=== PATIENT | male | born 1995 | race Asian ===

== ENCOUNTER 2020-12-03 14:24 | Outpatient (REF) | payer OTHER, SELFPAY | END 2020-12-03 14:25 | disposition home or self-care (01) | LOC: HO.LAB 14:24 | PROVIDERS: Visit Provider Internal Medicine | DX: Z20.822 Contact with and (suspected) exposure to COVID-19 (principal) | CPT/HCPCS: 36415; C9803; U0003; U0005 ==

== ENCOUNTER 2021-06-15 15:30 | Outpatient (REF) | payer OTHER, SELFPAY | END 2021-06-15 15:31 | disposition home or self-care (01) | LOC: HO.LAB 15:30 | PROVIDERS: Visit Provider Internal Medicine | DX: Z20.822 Contact with and (suspected) exposure to COVID-19 (principal) | CPT/HCPCS: C9803; U0003; U0005 ==

== ENCOUNTER 2025-03-27 13:47 | Outpatient (AMB) | payer OTHER, SELFPAY ==
--- OUTSIDE RECORDS SUMMARY | 2025-03-27 13:49 | XMS_ITS | Continuity of Care Document ---
Author Name [facility] Organization [facility] Care Team Providers Care Music Producer Name Role Phone [facility] Unavailable Unavailable Problems Combined list of problems from Department of Defense and Veterans Affairs facilities. It does not include entries that were removed or entered in error. Problem Status Onset Date Problem Type Date of Resolution Comments Source DERMATOPHYTOSIS TINEA PEDIS Active Condition DoD [employer] Fitting Monofocals (Not For Aphakia) Active Condition DoD Vaccines Prophylactic Need Against Combinations Of Diseases Inactive Condition DoD Vaccines Prophylactic Need Against Influenza Inactive Condition DoD visit for: screening exam hematological disorders Inactive Condition DoD Vaccines Prophylactic Need Against Viral Diseases Inactive Condition DoD Vaccines Prophylactic Need Against Bacterial Diseases Meningococcal Inactive Condition DoD Need For Vaccination Hepatitis A And Hepatitis B Inactive Condition DoD Vaccines Prophylactic Need Against DTP Inactive Condition DoD Need For Vaccination Poliomyelitis Inactivated Inactive Condition DoD Vaccines Prophylactic Need Against Bacterial Diseases Inactive Condition DoD visit for: occupational health / fitness exam Active Condition [facility] Patient Education - Injury Prevention Active Condition [facility] visit for: ears / hearing exam Active Condition [facility] visit for: services physical Inactive Condition DoD ASTIGMATISM - REGULAR Active Condition DoD REFRACTIVE ERROR - MYOPIA Active Condition [facility] visit for: screening exam pulmonary tuberculosis Inactive Condition DoD Blood Typing Inactive Condition DoD Immunizations Combined list of available immunizations from the Department of Defense and Veterans Affairs facilities. Immunization Series Date Given Administered By Site Reaction Lot Number CVX Code Drug Heating Equipment Repairer Status Comments Source influenza, injectable, quadrivalent- pf 2018 [id number] Seqirus complet ed influenza , injectabl e, quadrival ent-pf 08/23/19 Given Ambulat ory Pharmac y influenza, injectable, quadrivalent 2018 [id number] Seqirus complet ed influenza , injectabl e, quadrival ent 10/10/18 Given Ambulat ory Pharmac y influenza, injectable, quadrivalent, contains preservative 1 2018 [id number] Seqirus (SEQ) comple t ed influenza , injectabl e, quadrival ent, contains preservat chris DoD Influenza, inj, MDCK, quadrivalent- pf 2016 [id number] Seqirus complet ed Influenza , inj, MDCK, quadrival ent-pf 07/21/17 Given Ambulat ory Pharmac y Influenza, injectable, Madin Wilmot Canine Kidney, preservative free, quadrivalent 5 [id number] 171 Seqirus (SEQ) comple t ed Influenza , injectabl e, Madin [place] Canine Kidney, preservat chris free, quadrival ent DoD influenza, seasonal, injectable-pf 2016 [id number] Seqirus complet ed influenza , seasonal, injectabl e-pf 09/24/16 Given Ambulat ory Pharmac y Influenza, seasonal, injectable, preservative free 1 2016 [id number] 140 Seqirus (SEQ) comple t ed Influenza , seasonal, injectabl e, preservat chris free DoD anthrax vaccine 2015 Libby ht Arm [id number] Emergent Biosolutions complet ed anthrax vaccine 01/17/16 Given Ambulat ory Pharmac y anthrax vaccine 3 2015 [id number] 24 [employer] Alon (MIP) complet ed anthrax vaccine DoD vaccinia (smallpox) vaccine 2014 [id number] 75 complet ed vaccinia (smallpox ) vaccine 08/20/15 Given Ambulat ory Pharmac y vaccinia (smallpox) vaccine 1 2014 75 Transcribed (TRS) complet ed vaccinia (smallpox ) vaccine DoD influenza, seasonal, injectable 2014 [id number] 141 [facility] complet ed influenza , seasonal, injectabl e 06/20/15 Given Ambulat ory Pharmac y Influenza, seasonal, injectable 1 2014 [id number] 141 [place] (AB) complet ed Influenza , seasonal, injectabl e DoD anthrax vaccine 2014 [id number] [employer]gent [employer] complet ed anthrax vaccine 05/17/15 Given Ambulat ory Pharmac y Malawian Encephalitis IM 2014 [id number] 134 Novartis Pharmaceutica ls complet ed Malawian Encephali tis IM 05/17/15 Given Ambulat ory Pharmac y anthrax vaccine 2 2014 [id number] 24 [employer] [place] (MIP) complet ed anthrax vaccine DoD Malawian Encephalitis vaccine for intramuscular administratio n 2 2014 [id number] 134 Novartis Pharmaceutica l Bharati. (NOV) complet ed Mal[place]ian Encephali tis vaccine for intramusc ular administr ation DoD anthrax vaccine 2014 [id number] 24 Emergent [employer]olutions complet ed anthrax vaccine 04/14/15 Given Ambulat ory Pharmac y Malawian Encephalitis IM 2014 [id number] 134 Novartis Pharmaceutica ls complet ed Malawian Encephali tis IM 04/14/15 Given Ambulat ory Pharmac y anthrax vaccine 1 2014 [id number] 24 [employer] [place] (MIP) complet ed anthrax vaccine DoD Malawian Encephalitis vaccine for intramuscular administratio n 1 2014 [id number] 134 Novartis Pharmaceutica l Bharati. (NOV) complet ed [place]ian Encephali tis vaccine for intramusc ular administr ation DoD influenza, live, intranasal,qu adrivalent 2013 [id number] 149 Medimmune Inc comple t ed influenza , live, intranasa l,quadriv alent 07/21/14 Given Ambulat ory Pharmac y influenza, live, intranasal, quadrivalent 1 2013 [id number] 149 MedIEcoIntenseune, Inc. (MED) complet ed influenza , live, intranasa l, quadrival ent DoD typhoid Vi capsular polysaccharid e vac 2013 [id number] 101 sanofi pasteur complet ed typhoid Vi capsular polysacch aride vac 05/07/14 Given Ambulat ory Pharmac y typhoid Vi capsular polysaccharid e vaccine 1 2013 [id number] 101 Sanofi Pasteur (PMC) complet ed typhoid Vi capsular polysacch aride vaccine DoD hepatitis A-hepatitis B vaccine 2013 [id number] 104 GlaxoSmithKli ne complet ed hepatitis A-hepatit is B vaccine 10/29/13 Given Ambulat ory Pharmac y hepatitis A and hepatitis B vaccine 3 2013 [id number] 104 SmithKline (SKB) complet ed hepatitis A and hepatitis B vaccine DoD influenza, live, intranasal,qu adrivalent 2012 [id number] 149 Medimmune Inc comple t ed influenza , live, intranasa l,quadriv alent 08/26/13 Given Ambulat ory Pharmac y influenza, live, intranasal, quadrivalent 1 2012 [id number] 149 MedIEcoIntenseune, Inc. (MED) complet ed influenza , live, intranasa l, quadrival ent DoD measles, mumps and rubella virus vaccine 1 2012 UNK 03 Unknown (UNK) Not Given measles, mumps and rubella virus vaccine DoD varicella virus vaccine 1 2012 UNK 21 Unknown (UNK) Not Given varicella virus vaccine DoD hepatitis A-hepatitis B vaccine 2012 [id number] 104 GlaxoSmithKli ne complet ed hepatitis A-hepatit is B vaccine 05/05/13 Given Ambulat ory Pharmac y hepatitis A and hepatitis B vaccine 2 2012 [id number] 104 Smithine (SKB) complet ed hepatitis A and hepatitis B vaccine DoD poliovirus vaccine, inactivated 2012 [id number] 10 sanofi pasteur complet ed polioviru s vaccine, inactivat ed 03/28/13 Given Ambulat ory Pharmac y tetanus, diphtheria, acellular pertu is 2012 [id number] 115 GlaxoSmithKli ne complet ed tetanus, diphtheri a, acellular pertussis 03/28/13 Given Ambulat ory Pharmac y meningococcal A,C,Y,W-135 (MCV4P) 2012 [id number] 114 sanofi pasteur complet ed meningoco ccal A,C,Y,W-1 35 (MCV4P) 03/28/13 Given Ambulat ory Pharmac y hepatitis A-hepatitis B vaccine 2012 [id number] 104 GlaxoSmithKli ne complet ed hepatitis A-hepatit is B vaccine 03/28/13 Given Ambulat ory Pharmac y adenovirus vaccine, live 2012 [id number] 143 Teva Pharmaceutica complet ed adenoviru s vaccine, live 03/28/13 Given Ambulat ory Pharmac y poliovirus vaccine, inactivated 1 2012 [id number] 10 Sanofi Pasteur (PMC) complet ed polioviru s vaccine, inactivat ed DoD hepatitis A and hepatitis B vaccine 1 2012 [id number] 104 SmithKline (SKB) complet ed hepatitis A and hepatitis B vaccine DoD meningococcal polysaccharid e (groups A, C, Y and W-135) diphtheria toxoid conjugate vaccine (MCV4P) 1 2012 [id number] 114 Sanofi Pasteur (PMC) complet ed meningoco ccal polysacch aride (groups A, C, Y and W-135) diphtheri a toxoid conjugate vaccine (MCV4P) DoD tetanus toxoid, reduced diphtheria toxoid, and acellular pertu is vaccine, adsorbed 1 2012 [id number] Shruthi PanayaKline (SKB) complet ed tetanus toxoid, reduced diphtheri a toxoid, and acellular pertussis vaccine, adsorbed DoD Adenovirus, type 4 and type 7, live, oral 1 2012 [id number] 143 [email or web address] (BRR) complet ed Adenoviru s, type 4 and type 7, live, oral DoD tuberculin purified protein derivative 2012 [id number] 96 sanofi pasteur complet ed tuberculi n purified protein derivativ e 03/26/13 Given Ambulat ory Pharmac y Encounters Combined list of: 1) Encounters from Department of Veterans Affairs facilities going backup to the last 18 months, not all VA inpatient encounters are included; 2) Encounters from the Department of Defense facilities going backup to 280 months. Location Location Details Encounter Type Encounter Number Reason For Visit Attending Provider ADM Date DC Date Status Disposition Source [facility] TAVO Swift(IEP Optometry ) OUTPATIENT [id number] NOVEMBERCHRISTINE 03/26 Released w/o Limitations [facility] TAVO Swift(IEP Optomet ry) [facility] TAVO Swift(IEP Soldiers Initial Entry) OUTPATIENT [id number] Notes Entered by: Enrike WASHBURN 26 Mar 2013 1001 ------- ------- ------- ------- -- [id number] DAY 1 SAMUEL SALGADO 03/26 Released w/o Limitations [facility] TAVO Swift(IEP Weott s Initial Entry) [facility] TAVO Swift(IEP Hearing Conservat ion Exam) OUTPATIENT [id number] Notes Entered by: Gage ALMAZAN 27 Mar 2013 0829 ------- ------- ------- ------- -- 020 SYLVIA ALMAZAN 03/27 Released w/o Limitations [facility] TAVO Swift(IEP Hearing Conserv ation Exam[facility] [place] [place] [facility] OUTPATIENT [id number] Notes Entered by: Enrike WASHBURN 28 Mar 2013 0426 ------- ------- ------- ------- -- 13216 B1 DAY 3 NO LV SARI WASHBURN 03/28 [facility] w/o Limitations [facility] [place] [place] Initial [place] [place] Initial Entry) OUTPATIENT [id number] Notes Entered by: JOSEPH LEWIS 2013 1011 ------- ------- ------- ------- -- ALEX HUNTER 05/05 [facility] w/o Limitations [facility] [place] [place] Initial [facility] JABIER English([facility] Medical Inprocess ing) OUTPATIENT [id number] NAOMI LE 08/26 Released w/o Limitations [facility] JABIER English([facility] Medical Inproce ssing) [facility] JABIER Engilsh([facility] Primary Care) OUTPATIENT [id number] Notes Entered by: KIMBERLI CAVANAUGH 29 Oct 2013 1437 ------- ------- ------- ------- -- walk in KIMBERLI CAVANAUGH 10/29 Released w/o Limitations [facility] JABIER English([facility] Primary Care) [facility] JABIER English([facility]) OUTPATIENT [id number] Notes Entered by: JONNIE STONE 09 Dec 2013 1239 ------- ------- ------- ------- -- CORNELIUS Bill III 12/09 Released w/o Limitations [facility] JABIER English(Opto [facility]) [facility] JABIER English(Aviati on BRADEN) OUTPATIENT [id number] Notes Entered by: CY VINCENT 23 Dec 2013 0806 ------- ------- ------- ------- -- rash on right foot DILLON MEDINA 12/23 Released w/o Limitations [facility] [place]Av[place]ion BRAED[place]) [facility] [place] [address]) OUTPATIENT [id number] FCO CORONADO 02/02 Released w/o Limitations [facility] [place]Opto [facility] [address]) [facility] Primary Care) OUTPATIENT [id number] Notes Entered by: CARI FOX 08 May 2014 0946 ------- ------- ------- ------- -- ANISH MILLER 05/08 Released w/o Limitations [facility] [place] Primary Care) [facility] [place]Hear[place] Conserv[place] OUTPATIENT [id number] Notes Entered by: EZ SANTOS 08 May 2014 1005 ------- ------- ------- ------- -- annual TIMOTHY FLORES 05/08 Released w/o Limitations [facility] [place] Conserv [place]ion) [facility] [place] [address] OUTPATIENT [id number] Notes Entered by: MICHELE SCHAFER 30 Mar 2015 0908 ------- ------- ------- ------- -- FCO Donis 03/30 Released w/o Limitations [facility] [place] [facility] [facility] [address] [facility] [place] Primary Care) OUTPATIENT [id number] Notes Entered by: DOMENICO ALMANZAR 14 Apr 2015 1556 ------- ------- ------- ------- -- Last ANT ALMANZAR Colin 04/14 Released w/o Limitations [place] Primary Care) [place] Primary Care) OUTPATIENT [id number] Notes Entered by: CARI FOX 10 May 2015 1341 ------- ------- ------- ------- -- JANEL Her 05/10 Released w/o Limitations [place] Primary Care) [place] Primary Care) OUTPATIENT [id number] Notes Entered by: SYLVIA MCGHEE 17 May 2015 1004 ------- ------- ------- ------- -- walk in JE and anthrax SYLVIA ESTRADA 05/17 Released w/o Limitations [place] Primary Care) JENNIFER MARMOLEJOGOOD-P YONGTAEK( Immunizat ions [place] ) OUTPATIENT [id number] Notes Entered by: ANA MARIA AREVALO 20 Aug 2015 1528 ------- ------- ------- ------- -- YUSUF MENDIOLA 08/20 Released w/o Limitations [facility] KENDRA EVANS -PYONGT AEK(Imm unizati ons Humphre ys) JENNIFER Knox CRISTINA-P YONGTAEK( Immunizat ions [place] ) OUTPATIENT [id number] Notes Entered by: FARRAH RAMON 17 Jan 2016 1323 ------- ------- ------- ------- -- Anthrax SHERMAN MARTINEZ 01/16 Released w/o Limitations JENNIFER MARMOLEJOGOOD -PYONGT AEK(Imm unizati ons [place]) JENNIFER MARMOLEJOGOOD-P YONGTAEK( Hearing Program [facility]) OUTPATIENT [id number] Notes Entered by: SHAHAB SMITH 25 Jan 2016 1353 ------- ------- ------- ------- -- Hearing Test APRIL SMITH 01/24 Released w/o Limitations [facility] KENDRA DOAN AENarciso(Hea ring Program [facility]) [facility] [place] Conserv[place] OUTPATIENT [id number] Notes Entered by: EZ SANTOS 09 Mar 2016 0824 ------- ------- ------- ------- -- [facility] post-TIMOTHY Melgar 03/09 Released w/o Limitations [facility] [place] Conserv [place]ion[place] [facility] OUTPATIENT [id number] Notes Entered by: DALILA WHITLEY 02 May 2016 1406 ------- ------- ------- ------- -- ets MIKAELA SAM 05/02 [facility]ased w/o Limitations [facility]) [facility] [address] OUTPATIENT [id number] ETS Physica l- labs JOSE Shelby 05/23 Released w/o Limitations [facility] [place]([facility] [address]) [place] [address](AFN G 104 Med Sq-FM) OUTPATIENT [id number] Notes Entered by: CHRISTINE WILLIS 18 Feb 2017 0850 ------- ------- ------- ------- -- [employer] PHA-Q ABIGAIL WILLIS 02/18 Released w/o Limitations [facility] [place] [address](A FNG 104 Med Sq-FM) [place] [address](AFN G 104 Med Sq-FM) OUTPATIENT [id number] DAVID WATSON 05/23 Released w/o Limitations [facility] [place] [address](A FNG 104 Med Sq-FM) [facility] [address](AFN G 104 Med Sq-FM) OUTPATIENT [id number] Notes Entered by: CHRISTINE WILLIS R 19 Dec 2018 0827 ------- ------- ------- ------- -- [employer] PHAQ ABIGAIL WILLIS R 12/19 Released w/o Limitations [facility] [place] [address](A FNG 104 Med Sq-FM) Procedures Combined list of: 1) Procedures from Department of Veterans Affairs facilities going back up to thelast 18 months, not all VA non-surgical procedures are included; 2) All procedures from the Department of Defense facilities. Procedure Procedure Type Code Date Perfomer Comments Sourc e No data available for this section Amb[facility] ry Pharmacy PURE TONE AUDIOMETRY (THRESHOLD), AUTOMATED; AIR ONLY 2015 DoD ANTHRAX VACCINE, FOR SUBCUTANEOUS OR INTRAMUSCULAR USE 2015 DoD IMMUNIZATION ADMINISTRATION (INCLUDES PERCUTANEOUS, INTRADERMAL, SUBCUTANEOUS, OR INTRAMUSCULAR INJECTIONS); 1 VACCINE (SINGLE OR COMBINATION VACCINE/TOXOID) 2014 DoD THERAPEUTIC, PROPHYLACTIC, OR DIAGNOSTIC INJECTION (SPECIFY SUBSTANCE OR DRUG); SUBCUTANEOUS OR INTRAMUSCULAR 2012 DoD THERAPEUTIC, PROPHYLACTIC, OR DIAGNOSTIC INJECTION (SPECIFY SUBSTANCE OR DRUG); SUBCUTANEOUS OR INTRAMUSCULAR 2012 DoD AUDIOMETRIC TESTING OF GROUPS 2012 DoD SKIN TEST; TUBERCULOSIS, INTRADERMAL 2012 DoD SCREENING TEST OF VISUAL ACUITY, QUANTITATIVE, BILATERAL 2012 DoD SCREENING TEST OF VISUAL ACUITY, QUANTITATIVE, BILATERAL 2015 DoD PURE TONE AUDIOMETRY (THRESHOLD); AIR ONLY 2015 DoD ANTHRAX VACCINE, FOR SUBCUTANEOUS OR INTRAMUSCULAR USE 2014 DoD COLLECTION OF VENOUS BLOOD BY VENIPUNCTURE 2014 DoD FITTING OF SPECTACLES, EXCEPT FOR APHAKIA; MONOFOCAL 2014 DoD PURE TONE AUDIOMETRY (THRESHOLD); AIR ONLY 2013 [facility] TYPHOID VACCINE, CAPSULAR POLYSACCHARIDE (VICPS), FOR INTRAMUSCULAR USE 2013 [facility] FITTING OF SPECTACLES, EXCEPT FOR APHAKIA; MONOFOCAL 2013 [facility] FITTING OF SPECTACLES, EXCEPT FOR APHAKIA; MONOFOCAL 2013 [facility] HEPATITIS A AND HEPATITIS B VACCINE (HEPA-HEPB), ADULT DOSAGE, FOR INTRAMUSCULAR USE 2013 [facility] INFLUENZA VIRUS VACCINE, TRIVALENT, LIVE (LAIV3), FOR INTRANASAL USE 2012 [facility] Screening Test Of Visual Acuity, Quantitative, Bilateral Screening Test Of Visual Acuity, Quantitative, Bilateral 97880 2015 MIKAELA SAM [facility] Threshold Audiogram (Pure Tone) Threshold Audiogram (Pure Tone) 88235 2015 TIMOTHY FLORES [facility] Threshold Audiogram (Pure Tone) Automated Threshold Audiogram (Pure Tone) Automated 0208T 2015 APRIL SMITH [facility] Immunization Administration One Vaccine Immunization Administration One Vaccine 86877 2015 SHERMAN MARTINEZ [facility] Vaccines Vaccines 43090 2014 ALICE AREVALO Immunization Administration One Vaccine Immunization Administration One Vaccine 10479 2014 ALICE AREVALO Immunization Administration Each Additional Vaccine Immunization Administration Each Additional Vaccine 83807 2014 SYLVIA ESTRADA Vaccines Viral Mal[place]ian Encephalitis Inactivated, Intramuscular Vaccines Viral [place]ian Encephalitis Inactivated, Intramuscular 25615 2014 SYLVIA ESTRADA Immunization Administration One Vaccine Immunization Administration One Vaccine 22414 2014 SYLVIA ESTRADA Venipuncture Venipuncture 00734 2014 ANT ALMANZAR Vaccines Viral Mal[place]ian Encephalitis Inactivated, Intramuscular Vaccines Viral Mal[place]ian Encephalitis Inactivated, Intramuscular 87390 2014 ANT ALMANZAR Immunization Administration Each Additional Vaccine Immunization Administration Each Additional Vaccine 04955 2014 ANT ALMANZAR Immunization Administration One Vaccine Immunization Administration One Vaccine 59523 2014 ANT ALMANZAR [employer] Fitting Monofocals (Not For Aphakia) [employer] Fitting Monofocals (Not For Aphakia) 59457 2014 FCO ZAMORANO Determination Of Refractive State Determination Of Refractive State 24122 2014 [facility] ZAMORANO Ophthalmological Prior Patient Start Comprehensive Care Ophthalmological Prior Patient Start Comprehensive Care 02652 2014 [facility] Z[facility] Threshold Audiogram (Pure Tone) Threshold Audiogram (Pure Tone) 36253 2013 TIMOTHY FLORES [facility] Testing [facility] Testing 08645 2013 TIMOTHY FLORES Typhoid Vaccine Vi Capsular Polysaccharide, For Intramus Use Typhoid Vaccine Vi Capsular Polysaccharide, For Intramus Use 97404 2013 ELIZABETH RODRIGUEZ IMMS GIVEN BY: ALEX Verma SOLDIER ASKED TO VERIFY FULL NAME AND . SOLDIER DENIES ANY CULTURAL LIMITATIONS TO RECEIVING VACCINATION/INJ ECTION. EDUCATIONAL INFORMATION PROVIDED BY WAY OF VACCINE INFORMATION SHEETS BY THE CDC. ALLERGIES VERIFIED AND PATIENT/PARENT EDUCATED ON POTENTIAL SIDE EFFECTS, REACTIONS, AND MEDICATION CONTRAINDICATIO NS. SOLDIER HAS NO QUESTIONS AT THIS TIME. SOLDIER AGREES TO WAIT IN CLINIC FOR 20 MIN FOLLOWING VACCINATION/INJ ECTION TO MONITOR FOR SIDE EFFECT AND/OR REACTIONS. VACCINES/IMMUNI ZATIONS RECORDED IN [facility] IMMUNIZATIONS MODULE AND MEDPROS, INCLUDES DETAILS OF VACCINES GIVEN, LOCATION, DOSAGE, AND ADVERSE EVENTS. THE DRUG REACTIONS/SIDE EFFECTS ARE BEING MONITORED: DETAILS -- PATIENT TOLERATED VACCINATIONS WITHOUT SIGNIFICANT SIDE EFFECTS, DISCHARGED 20 MINUTES AFTER ADMINISTERED AND NO ADVERSE REACTIONS NOTED. DoD Immunization Administration One Vaccine Immunization Administration One Vaccine 56530 2013 ELIZABETH RODRIGUEZ [facility] [employer] Fitting Monofocals (Not For Aphakia) [employer] Fitting Monofocals (Not For Aphakia) 80560 2013 FCO ZAMORANO Determination Of Refractive State Determination Of Refractive State 27688 2013 [facility]CO ZAMORANO Ophthalmological New Patient Start Comprehensive Care Ophthalmological New Patient Start Comprehensive Care 21259 2013 FCO ZAMORANO [employer] Fitting Monofocals (Not For Aphakia) [employer] Fitting Monofocals (Not For Aphakia) 10220 2013 CORNELIUS TORRES III [facility] Hepatitis A And Hepatitis B (Intramuscular Use) Adult Dosage Hepatitis A And Hepatitis B (Intramuscular Use) Adult Dosage 14636 2013 KIMBERLI CAVANAUGH Immunization Administration One Vaccine Immunization Administration One Vaccine 93725 2013 KIMBERLI CAVANAUGH Influenza Virus Vaccine Live Intranasal Influenza Virus Vaccine Live Intranasal 67815 2012 NAOMI LE Immunization Administration One Vaccine Immunization Administration One Vaccine 14267 2012 NAOMI LE Venipuncture Venipuncture [address] Supervised Injection Intramuscular Supervised Injection Intramuscular 25385 2012 ALEX TRIVEDI Immunization Administration One Vaccine Immunization Administration One Vaccine 63725 2012 ALEX TRIVEDI Hepatitis A And Hepatitis B (Intramuscular Use) Adult Dosage Hepatitis A And Hepatitis B (Intramuscular Use) Adult Dosage 58884 2012 ALEX TRIVEDI Vaccines Adenovirus Type 4 Live, For Oral Use Vaccines Adenovirus Type 4 Live, For Oral Use 20706 2012 SARI WASHBURN Vaccines Adenovirus Type 7 Live, For Oral Use Vaccines Adenovirus Type 7 Live, For Oral Use 66551 2012 SARI WASHBURN Immunization Admin By Intranasal / Oral Route One Vaccine Immunization Admin By Intranasal / Oral Route One Vaccine [address] Supervised Injection Intramuscular Antibiotic Supervised Injection Intramuscular Antibiotic 57685 2012 SARI WASHBURN Vaccines Viral Polio, Inactivated (Salk) Vaccines Viral Polio, Inactivated (Salk) 88825 2012 SARI WASHBURN Tdap Vaccine Tdap Vaccine 87898 2012 SARI WASHBURN Hepatitis A And Hepatitis B (Intramuscular Use) Adult Dosage Hepatitis A And Hepatitis B (Intramuscular Use) Adult Dosage 44954 2012 SARI WASHBURN Immunization Administration Each Additional Vaccine Immunization Administration Each Additional Vaccine [address] Supervised Injection Intramuscular Supervised Injection Intramuscular 91316 2012 SARI WASHBURN Immunization Administration One Vaccine Immunization Administration One Vaccine 96926 2012 SARI WASHBURN [facility] Testing [facility] Group Testing 01592 2012 SYLVIA ALMAZAN [facility] Screening Test Of Visual Acuity, Quantitative, Bilateral Screening Test Of Visual Acuity, Quantitative, Bilateral [id number] 2012 CHRISTINE ROSARIO [facility] Spectacles Services Fitting Monofocals (Not For Aphakia) [facility] Fitting Monofocals (Not For Aphakia) [id number] 2012CHRISTINE [facility] Determination Of Refractive State Determination Of Refractive State [id number] 2012CHRISTINE [facility] Skin Test Anergy tuberculin Skin Test Anergy tuberculin [id number] 2012 SAMUEL SALGADO [facility] Venipuncture Venipuncture [id number] 2012 SAMUEL SALGADO Social History Combined list of available smoking, tobacco, and other social history from [facility] facilities. Social History Type Response Date Comment Sourc e Sexual Orientation Ambula tory Pharmacy Gender identity Ambulator y Pharmacy Sex Representation Male (finding) Un known Organization This section is an empty soc ial history section. [employer] Assessment and Plan Combined list of future care activities from [facility] and [facility] facilities (e.g., assessment and plan notes, appointments, orders, and referrals). Additional future care activities may be listed in the Plan of Care section. Result Assessment and Plan Date Source Assessment and Plan No data available for this section 03/27/2025 Ambulatory Pharmacy Functional Status Combined list of recent functional and cognitive assessments recorded at [facility] Functional [place] Measurement (FIM) Scale: 1 = Total Assistance (Subject = 0% +), 2 = Maximal Assistance (Subject = 25% +), 3 = Moderate Assistance (Subject = 50% +), 4 = Minimal Assistance (Subject = 75% +), 5 = Supervision, 6 = Modified [place] (Device), 7 = Complete [place] (Timely, Safely). Assessment Date/Time Source Assessment Type Assessment Skill Assessment Score Assessment Details No data available for this section
--- NOTE | 2025-03-27 14:03 | MHC.OFFWIV ---
Intake Vital Signs 03/27/25 14:04 03/27/25 14:09 Height 5 ft 4.5 in Weight 127 lb BMI 21.5 BP 96/58 L 104/60 Blood Pressure Location Rt brachial Lt brachial Position Sitting Sitting Pulse 52 Pulse Source Pulse Oximeter Temp 97.7 F Temp Source Oral Pulse Oximetry (%) 99 Oxygen Delivery Method Room Air Intake Visit Reasons: EP Stomach pain Intake Note: presents with stomach pain with sweating started this morning, low back pain & body aches for a couple days Allergies No Known Allergies Allergy (Verified 03/27/25 14:10) Do you need a note to return to daycare/school/sports/work: No HPI HPI Comments History of Present Illness Details History - The patient is a 29-year-old male presenting with abdominal pain. - The abdominal pain began this morning and is described as cramping, intense and intermittent. - No fever, chills, nausea, vomiting, or diarrhea reported. - The patient has not consumed much food or drink today due to the pain. - No significant medical history or gastrointestinal surgeries reported. - Back pain is present but does not radiate to the front or to his sides - No urinary changes or hematuria reported. - Last meal was yogurt this AM whcih did not worsen his pain - Last BM was normal this morning. - The patient has used Pepto Bismol without symptom relief. - Pain does not radiate into his groin Physical Exam General: Cooperative, healthy appearing, comfortable, no acute distress and well developed Orientation: Patient oriented x3 Limitations: No limitations Head: Normal to inspection Ears: Hearing grossly normal bilaterally Face and sinus: Normal facial exam Neck: Normal visual inspection and Yes full ROM Respiratory: Normal respiratory effort and able to speak in complete sentences. GI: normoactive bs, soft, negative rdz's, negative mcburneys, negative rebound, slight ttp periumbilical area, negative J-up test Skin: No rashes or lesions noted Neuro: Patient oriented x3 Back/spine: negative CVA bilaterally, No pain upon palpation of entire back and spine. Review of Systems Const All systems reviewed & are unremarkable except as noted in HPI and below Physical Exam Vital Signs: Last Vital Signs Temp 97.7 F 03/27/25 14:04 Pulse 52 03/27/25 14:04 BP 104/60 03/27/25 14:09 Pulse Ox 99 03/27/25 14:04 Oxygen Delivery Method Room Air 03/27/25 14:04 BMI result Body Mass Index 21.5 Results AMB Urinalysis, Automated UA Leukoctes 0 Cody/uL Last Edit by Awilda Akins MA on 03/27/25 14:49 UA Nitrite Negative Last Edit by Awilda Akins MA on 03/27/25 14:49 UA Urobilinogen 0.2 mg/dL Last Edit by Awilda Akins MA on 03/27/25 14:49 UA Protein 0 mg/dL Last Edit by Awilda Akins MA on 03/27/25 14:49 UA pH 6.0 Last Edit by Awilda Akins MA on 03/27/25 14:49 UA Blood 0 Malcolm/uL Last Edit by Awilda Akins MA on 03/27/25 14:49 UA Specific [place] 1.030 Last Edit by Awilda Akins MA on 03/27/25 14:49 UA Ketone Negative Last Edit by Awilda Akins MA on 03/27/25 14:49 UA Bilirubin 0 mg/dL Last Edit by Awilda Akins MA on 03/27/25 14:49 UA Glucose 0 mg/dL Last Edit by Awilda Akins MA on 03/27/25 14:49 Results Reviewed Results Reviewed: Laboratory Last Values Urine pH (Auto) 6.0 03/27/25 14:46 Specific [place] (Auto) 1.030 03/27/25 14:46 Urine Protein (Auto) 0 mg/dL 03/27/25 14:46 Glucose (UA)(Auto) 0 mg/dL 03/27/25 14:46 Urine Ketones (Auto) Negative 03/27/25 14:46 Urine Blood (Auto) 0 Malcolm/uL 03/27/25 14:46 Urine Nitrite (Auto) Negative 03/27/25 14:46 Urine Bilirubin (Auto) 0 mg/dL 03/27/25 14:46 Urine Urobilinogen (Auto) 0.2 mg/dL 03/27/25 14:46 Leukocyte Esterase (Auto) 0 Cody/uL 03/27/25 14:46 Assessment & Plan Assessment & Plan (1) Intermittent lower abdominal pain: Code(s): R10.30 - Lower abdominal pain, unspecified Plan: Plan Patient was informed and verbally consented to the use of an ambient scribe for clinic note documentation during this visit. 1. Abdominal Pain - VSS, pt well appearing and PE remarkable for only slight TTP of periumbilical area - possible dehydration vs appendicitis though neg [place]neys and J-up vs cholecystitis negative [place] and not worse after eating and pain is not in RUQ vs constipation though last BM was normal and this morning vs kidney stones though neg CVA and UA negative for blood - Conducted urinalysis to rule out urinary tract infection and blood in urine. UA was negative for [place], nitrites and blood. - If symptoms persist, pain worsens, fever develops or bloody or black stools occur, he whould go to the ED for further workup. He was educated that the Pepto-Bismol can turn his stools black. - [place] diet, monitor symptoms and ensure adequate hydration, ED precautions given. Orders: Orders AMB Urinalysis Automated Today Z13.9 - Encounter for screening, unspecified AMB Urinalysis Automated Today Z13.9 - Encounter for screening, unspecified Coding Level of Care Code New Pt Level 3 (68971) Diagnoses Intermittent lower abdominal pain R10.30
[2025-03-27 14:04] VITALS: BP 96/58; PULSE 52; TEMP 36.5; O2SAT 99; BMI 21.5
[2025-03-27 14:09] VITALS: BP 104/60
== END 2025-03-27 15:07 | disposition home or self-care (01) ==
PROVIDERS: PCP Nurse Practitioner Family; Visit Provider Physician Assistant
DX: R10.30 Lower abdominal pain, unspecified (principal); Z13.9 Encounter for screening, unspecified

== ENCOUNTER → 2025-03-27 13:47 | Outpatient (BNVA) | payer OTHER, SELFPAY | PROVIDERS: PCP Nurse Practitioner Family; Visit Provider Physician Assistant | DX: R10.33 Periumbilical pain (principal) | CPT/HCPCS: 81003 ==